=== PATIENT | male | born 1990 | race Caucasian/White ===

== ENCOUNTER 2016-10-17 13:46 | Emergency (ER) | payer SELFPAY ==
[~2016-10-17] VITALS: Ht 165.1 cm; Wt 94.0 kg
[~2016-10-17 13:46] MED LIST: PRED20 PO; VIST25CA PO; Z.0.NO CURRENT MEDS
[2016-10-17 14:08] VITALS: BP 141/91; PULSE 119; RESP 20; TEMP 102.1; O2SAT 96
[2016-10-17 14:20] VITALS: BP 147/77; PULSE 106; RESP 18; TEMP 101.9; O2SAT 98
--- NOTE | 2016-10-17 14:39 | PD ---
HPI Chief Complaint: Cold / Flu Symptoms Time Seen by Provider: 14:27 Travel History International Travel<30 days: No Contact w/Intl Traveler<30days: No Traveled to known affect area: No History of Present Illness HPI Patient presents with complaints of general malaise fever cough and sore throat and loose stools for 2-3 days. Reports 2 episodes of vomiting. He did not get a flu shot this year. No new rashes. No history of lung disease. No tobacco exposure. Taking Tylenol. PFSH Past Medical History Medical History: Denies Significant Hx Cancer: No Cardiovascular Problems: No Diabetes: No Diminished Hearing: No Glaucoma: No Hepatitis: No Hiatal Hernia: No Hypertension: No Respiratory: No Immunizations Current: Yes Thyroid Disease: No Influenza Vaccination: No Past Surgical History Tonsillectomy: Yes Other Surgery: Yes (EXCISION MOLE) Social History Alcohol Use: Yes (OCC) Tobacco Use: No Substance Use: No Allergies-Medications (Allergen,Severity, Reaction): Coded Allergies: Penicillin (Verified Allergy, Severe, HIVES, 10/17/16) Reported Meds & Prescriptions Reported Meds & Active Scripts Active Physical Exam Narrative GENERAL: Well-nourished, well-developed patient. SKIN: Warm and dry. HEAD: Normocephalic. Throat erythematous mild adenopathy no exudate EYES: No scleral icterus. No injection or drainage. NECK: Supple, trachea midline. No JVD or lymphadenopathy. CARDIOVASCULAR: Regular rate and rhythm without murmurs, gallops, or rubs. RESPIRATORY: Breath sounds equal bilaterally. No accessory muscle use. GASTROINTESTINAL: Abdomen soft, non-tender, nondistended. MUSCULOSKELETAL: No cyanosis, or edema. BACK: Nontender without obvious deformity. No CVA tenderness. Data Data Last Documented VS Vital Signs Date Time Temp Pulse Resp B/P Pulse Ox O2 Delivery O2 Flow Rate FiO2 10/17/16 14:47 98 Room Air 10/17/16 14:20 101.9 106 18 147/77 Orders Complete Blood Count With Diff (10/17/16 14:27) Comprehensive Metabolic Panel (10/17/16 14:27) Lactic Acid Sepsis Protocol (10/17/16 14:27) Urinalysis - C+S If Indicated (10/17/16 14:27) Blood Culture (10/17/16 14:27) Chest, Single Ap (10/17/16 14:27) Blood Glucose (10/17/16 14:27) Ecg Monitoring (10/17/16 14:27) Iv Access Insert/Monitor (10/17/16 14:27) Oximetry (10/17/16 14:27) Oxygen Administration (10/17/16 14:27) Influenzae A/B Antigen (10/17/16 14:27) Sodium Chlor 0.9% 1000 Ml Inj (Ns 1000 M (10/17/16 14:45) Ibuprofen (Motrin) (10/17/16 15:00) Ondansetron Inj (Zofran Inj) (10/17/16 15:00) Labs Laboratory Tests Test 10/17/16 14:37 White Blood Count 6.5 TH/MM3 Red Blood Count 4.93 MIL/MM3 Hemoglobin 14.9 GM/DL Hematocrit 43.3 % Mean Corpuscular Volume 87.8 FL Mean Corpuscular Hemoglobin 30.2 PG Mean Corpuscular Hemoglobin 34.4 % Concent Red Cell Distribution Width 12.3 % Platelet Count 120 TH/MM3 Mean Platelet Volume 8.2 FL Neutrophils (%) (Auto) 84.1 % Lymphocytes (%) (Auto) 8.9 % Monocytes (%) (Auto) 6.1 % Eosinophils (%) (Auto) 0.0 % Basophils (%) (Auto) 0.9 % Neutrophils # (Auto) 5.4 TH/MM3 Lymphocytes # (Auto) 0.6 TH/MM3 Monocytes # (Auto) 0.4 TH/MM3 Eosinophils # (Auto) 0.0 TH/MM3 Basophils # (Auto) 0.1 TH/MM3 CBC Comment DIFF FINAL Differential Comment Sodium Level 137 MEQ/L Potassium Level 3.5 MEQ/L Chloride Level 99 MEQ/L Carbon Dioxide Level 27.8 MEQ/L Anion Gap 10 MEQ/L Blood Urea Nitrogen 10 MG/DL Creatinine 1.10 MG/DL Estimat Glomerular Filtration 80 ML/MIN Rate Random Glucose 97 MG/DL Lactic Acid Level 1.4 mmol/L Calcium Level 8.4 MG/DL Total Bilirubin 0.7 MG/DL Aspartate Amino Transf 25 U/L (AST/SGOT) Alanine Aminotransferase 36 U/L (ALT/SGPT) Alkaline Phosphatase 112 U/L Total Protein 7.6 GM/DL Albumin 4.1 GM/DL MDM Medical Decision Making Medical Screen Exam Complete: Yes Emergency Medical Condition: Yes Differential Diagnosis Influenza, pneumonia, pharyngitis Narrative Course Assessment and plan discussed with patient and at bedside. Chest x-ray is negative for acute cardiopulmonary disease. Influenza positive. Diagnosis Primary Impression: Influenza Patient Instructions: General Instructions Additional Instructions: Encouraged rest fluids and Motrin. Follow-up with PCP if symptoms do not improve. Med/Other Pt SpecificInfo: Prescription(s) given Scripts Guaifenesin-Codeine Liq (Cheratussin AC Liq)100-10 Mg/5 Ml Syrp10 Ml PO Q4H PRN (COUGH AND COLD SYMPTOMS) #120 ML Ref 0 Do not exceed 6 doses/24 hrs. Prov:Chris Atwood MD 10/17/16 Oseltamivir (Tamiflu)75 Mg Cap75 Mg PO BID #10 CAP Ref 0 Prov:Chris Atwood MD 10/17/16 Ondansetron (Zofran)4 Mg Tab4 Mg PO Q6HR PRN (NAUSEA OR VOMITING) #20 TAB Ref 0 Prov:Chris Atwood MD 10/17/16 Hyoscyamine (Levsin)0.125 Mg Tab0.125 Mg PO Q6H PRN (loose stools) #20 TAB Ref 0 Prov:Chris Atwood MD 10/17/16 Disposition: 01 DISCHARGE HOME Condition: Good Chris Atwood MD Oct 17, 2016 14:39
[2016-10-17] MEDS ORDERED: SODIUM CHLOR 0.9% 1000 ML INJ 1,000 ML IV ONE (14:45)
[2016-10-17 14:47] VITALS: O2SAT 98
[2016-10-17 14:51] LABS: AUTOMATED NEUTROPHIL # 5.4 TH/MM3 (1.8-7.7); BASOPHIL # 0.1 TH/MM3 (0-0.2); BASOPHIL % 0.9 % (0.0-2.0); HEMATOCRIT 43.3 % (39.0-51.0); HEMO FLAGS DIFF FINAL; LYMPH % 8.9 % (9.0-44.0); LYMPHOCYTE # 0.6 TH/MM3 (1.0-4.8); MEAN CELL VOLUME 87.8 FL (80.0-100.0); MEAN CORPUSCULAR HEMOGLOBIN 30.2 PG (27.0-34.0); MEAN CORPUSCULAR HGB CONC 34.4 % (32.0-36.0); MONO % 6.1 % (0.0-8.0); NEUT % 84.1 % (16.0-70.0); PLATELET COUNT 120 TH/MM3 (150-450); RED BLOOD COUNT 4.93 MIL/MM3 (4.50-5.90); RED CELL DISTRIBUTION WIDTH 12.3 % (11.6-17.2); WHITE BLOOD COUNT 6.5 TH/MM3 (4.0-11.0)
[2016-10-17 14:59] LABS: CHLORIDE 99 MEQ/L (98-107); POTASSIUM 3.5 MEQ/L (3.5-5.1); SODIUM (NA) 137 MEQ/L (136-145)
[2016-10-17] MEDS ORDERED: ONDANSETRON HCL 4 MG/2 ML VIAL IV PUSH ONE (15:00)
[2016-10-17] MEDS ORDERED: IBUPROFEN 800 MG TAB PO ONE (15:00)
--- NOTE | 2016-10-17 15:00 | RADHPO ---
EXAM DATE/TIME: 10/17/2016 14:45 [facility] COMPARISON: No previous studies available for comparison. INDICATIONS : Short of breath, cough, fever, chest pains MEDICAL HISTORY : None. SURGICAL HISTORY : None. ENCOUNTER: Initial ACUITY: 3 days PAIN SCORE: 8/10 LOCATION: Bilateral chest FINDINGS: A single view of the chest demonstrates the lungs to be symmetrically aerated without evidence of mas s, infiltrate or effusion. The cardiomediastinal contours are unremarkable. Osseous structures are intact. CONCLUSION: No evidence of acute cardiopulmonary disease. Jovanni Harrison MD on October 17, 2016 at 14:58 Board Certified Radiologist. This report was verified electronically.
[2016-10-17 15:03] LABS: ANION GAP 10 MEQ/L (5-15); BICARBONATE 27.8 MEQ/L (21.0-32.0); BLOOD UREA NITROGEN 10 MG/DL (7-18)
[2016-10-17 15:06] LABS: ALT (GPT) 36 U/L (12-78); AST (GOT) 25 U/L (15-37); GLOMERULAR FILTRATION RATE 80 ML/MIN (>89)
[2016-10-17 15:07] LABS: TOTAL BILIRUBIN ADULT 0.7 MG/DL (0.2-1.0)
[2016-10-17 15:09] LABS: ALKALINE PHOSPHATASE 112 U/L (45-117)
[2016-10-17] MEDS ORDERED: OSEL75 PO (15:20)
[2016-10-17] MEDS ORDERED: LEVS0.123 PO (15:20)
[2016-10-17] MEDS ORDERED: ZOFR4TAB PO (15:20)
[2016-10-17] MEDS ORDERED: CHERSYP2 PO (15:20)
[2016-10-17 15:43] VITALS: BP 140/69; PULSE 100; RESP 20; TEMP 100.3; O2SAT 97
== END 2016-10-17 15:54 | disposition home or self-care (01) ==
LOC: PHED 13:46
DX: J10.1 Influenza due to other identified influenza virus with other respiratory manifestations (principal); B97.89 Other viral agents as the cause of diseases classified elsewhere
CPT/HCPCS: 71010; 80053; 83605; 85025; 87040; 87804; 96361; 96374; 99284; J2405; J7030